=== PATIENT | male | born 1990 | race American Indian/Alaskan Native ===

== ENCOUNTER 2017-01-01 17:50 | Emergency (ER) | payer SELFPAY ==
--- NOTE | 2017-01-01 21:20 | Emergency Department Report ---
ED Male HPI - General Chief complaint: Urogenital-Male Stated complaint: FEVER/BURING W/URINATION Time Seen by Provider: 01/01/17 20:48 Source: patient Mode of arrival: Ambulatory Limitations: No Limitations - History of Present Illness Initial comments: This is a 26 male that presents with subjective fever with burning on urination and painful urination for 2 days. Patient stated he may have a STD because he is concerned about those symptoms. Patient denies any new sexual partner. Patient is a heterosexual. He denies any chills, penile discharge, penile lesions or ulcers, chest pain, abdominal pain, flank pain, shortness of breath, nausea vomiting. Patient denies any drug allergies. MD Complaint: other (dysuria) -: Gradual, days(s) (2) Radiation: none Severity: mild Severity scale (0 -10): 1 Quality: other (dysuria) Consistency: constant Improves with: none Worsens with: none dysuria. denies: discharge, swelling, mass, rash, urinary retention, blood in urine, fever, nausea/vomiting, incontinence - Related Data Previous Rx's Medication Instructions Recorded Last Taken Type Sulfamethoxazole/Trimethoprim 1 each PO BID 10 Days 01/01/17 Unknown Rx [Bactrim DS TAB] Allergies Allergy/AdvReac Type Severity Reaction Status Date / Time No Known Allergies Allergy Unverified 01/01/17 18:12 ED Review of Systems ROS: Stated complaint: FEVER/BURING W/URINATION Other details as noted in HPI Constitutional: denies: chills, fever Eyes: denies: eye pain, eye discharge, vision change ENT: denies: ear pain, throat pain Respiratory: denies: cough, shortness of breath, wheezing Cardiovascular: denies: chest pain, palpitations Endocrine: no symptoms reported Gastrointestinal: denies: abdominal pain, nausea, diarrhea Genitourinary: denies: urgency, dysuria Musculoskeletal: denies: back pain, joint swelling, arthralgia Skin: denies: rash, lesions Neurological: denies: headache, weakness, paresthesias Psychiatric: denies: anxiety, depression Hematological/Lymphatic: denies: easy bleeding, easy bruising ED Past Medical Hx - Past Medical History Previous Medical History?: No - Surgical History Past Surgical History?: No - Social History Smoking Status: Former Smoker Substance Use Type: Alcohol - Medications Home Medications: Home Medications Medication Instructions Recorded Confirmed Last Taken Type Sulfamethoxazole/Trimethoprim 1 each PO BID 10 Days 01/01/17 Unknown Rx [Bactrim DS TAB] ED Physical Exam - General Limitations: No Limitations General appearance: alert, in no apparent distress - Head Head exam: Present: atraumatic, normocephalic - Eye Eye exam: Present: normal appearance, PERRL, EOMI - ENT ENT exam: Present: normal exam, normal orophraynx, mucous membranes moist, TM's normal bilaterally, normal external ear exam - Neck Neck exam: Present: normal inspection, full ROM. Absent: tenderness, meningismus, lymphadenopathy, thyromegaly - Respiratory Respiratory exam: Present: normal lung sounds bilaterally. Absent: respiratory distress, wheezes, rales, rhonchi, stridor - Cardiovascular Cardiovascular Exam: Present: regular rate, normal rhythm. Absent: systolic murmur, diastolic murmur, rubs, gallop - GI/Abdominal GI/Abdominal exam: Present: soft, normal bowel sounds. Absent: distended, tenderness, guarding, rebound, rigid - Rectal Rectal exam: Present: deferred - Extremities Exam Extremities exam: Present: normal inspection, full ROM, normal capillary refill. Absent: tenderness, pedal edema, joint swelling, calf tenderness - Back Exam Back exam: Present: normal inspection, full ROM. Absent: tenderness, CVA tenderness (R), CVA tenderness (L), muscle spasm, paraspinal tenderness, vertebral tenderness, rash noted - Neurological Exam Neurological exam: Present: alert, oriented X3, CN II-XII intact, normal gait - Psychiatric Psychiatric exam: Present: normal affect, normal mood - Skin Skin exam: Present: warm, dry, intact, normal color. Absent: rash ED Course Vital Signs 01/01/17 18:12 Temperature 98.1 F Pulse Rate 82 Respiratory 20 Rate Blood Pressure 119/68 O2 Sat by Pulse 100 Oximetry ED Medical Decision Making - Medical Decision Making ED course: This is a 26-year-old male that presents with urinary tract infection. 1-after my physical exam, a UA has been sent with the results of white count of 12, leukocyte trace, RBCs 2.0. 2- a gonorrhea chlamydia has been sent to lab with results. 3- patient received Bactrim at the time of discharge 10 days. 4- patient was instructed to follow-up with [facility] medical records for results of gonorrhea chlamydia. 5- due to absence of physical exam of a gonorrhea chlamydia patient did not get treated for gonorrhea chlamydia. 6- at the time of discharge the patient does not seem toxic or ill in appearance. No signs of distress noted. Patient agrees to discharge treatment plan. No further questions noted by the patient. Critical care attestation.: If time is entered above; I have spent that time in minutes in the direct care of this critically ill patient, excluding procedure time. ED Disposition Clinical Impression: UTI (urinary tract infection) Qualifiers: Urinary tract infection type: site unspecified Hematuria presence: without hematuria Qualified Code(s): N39.0 - Urinary tract infection, site not specified Disposition: DISCHARGED TO HOME OR SELFCARE Is pt being admited?: No Does the pt Need Aspirin: No Condition: Stable Instructions: Urinary Tract Infection in Men (ED) Additional Instructions: Follow-up with her primary care doctor in 3-5 days or if symptoms worsen or continue the [facility] emergency room. Physical courses of antibiotic as prescribed. Follow-up with [facility] medical records to obtain your gonorrhea/Chlamydia results. If results are abnormal you would have to be treated. Prescriptions: Sulfamethoxazole/Trimethoprim [Bactrim DS TAB] 1 each PO BID 10 Days Referrals: BRYANNA BAEZ MD [Primary Care Provider] - 3-5 Days [facility] [Outside] - 3-5 Days [facility] [Outside] - 3-5 Days OZ STERN MD [Referring] - 3-5 Days Forms: Work/School Release Form(ED)
[2017-01-01 21:21] LABS: Mucus,Urine 1+ /HPF
[2017-01-01 22:26] VITALS: BP 115/64
[2017-01-01 23:22] LABS: Bilirubin,Urine TNR (Negative)
[2017-01-01 23:23] LABS: Blood,Urine TNR (Negative); Ketones,Urine TNR mg/dL (Negative)
[2017-01-01 23:24] LABS: Nitrite,Urine TNR (Negative); PH,Urine TNR (5.0-7.0); Protein,Urine TNR mg/dL (Negative); Urobilinogen,Urine TNR mg/dL (<2.0)
[2017-01-01 23:25] LABS: Leukocyte Esterase,Urine TNR (Negative)
[2017-01-01 23:26] LABS: RBC,Urine TNR /HPF (0.0-6.0); WBC,Urine TNR /HPF (0.0-6.0)
[2017-01-01 23:27] LABS: Renal Epithelial Cells,Urine TNR /LPF; Uric Acid Crystals,Urine TNR
[2017-01-01 23:28] LABS: Bacteria,Urine TNR /HPF (Negative)
[2017-01-01 23:29] LABS: Bilirubin,Urine TNR (Negative); Ketones,Urine TNR mg/dL (Negative)
[2017-01-01 23:30] LABS: Blood,Urine TNR (Negative); PH,Urine TNR (5.0-7.0); Protein,Urine TNR mg/dL (Negative); Urobilinogen,Urine TNR mg/dL (<2.0)
[2017-01-01 23:31] LABS: Bacteria,Urine TNR /HPF (Negative); Leukocyte Esterase,Urine TNR (Negative); Nitrite,Urine TNR (Negative); RBC,Urine TNR /HPF (0.0-6.0); WBC,Urine TNR /HPF (0.0-6.0)
[2017-01-01 23:32] LABS: Mucus,Urine TNR /HPF
== END 2017-01-01 22:26 | disposition home or self-care (01) ==
LOC: ED 17:50
DX: N39.0 Urinary tract infection, site not specified (principal); Z87.891 Personal history of nicotine dependence
CPT/HCPCS: 81001; 99283